=== PATIENT | female | born 2000 | race Two or more races ===

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

== ENCOUNTER 2021-12-19 10:44 | Emergency (ER) | payer SELFPAY ==
[~2021-12-19] VITALS: Ht 154.9 cm; Wt 71.5 kg
[2021-12-19 11:08] VITALS: BP 129/87
[2021-12-19] MEDS ORDERED: KETOROLAC 15 MG/ML VIAL. IVP ONE (12:00)
[2021-12-19] MEDS ORDERED: PROCHLORPERAZINE 10 MG/2 ML VIAL. IV ONE (12:00)
[2021-12-19] MEDS ORDERED: diphenhydrAMINE 50 MG/ML VIAL IVP ONE ×2 (12:00→12:30)
[2021-12-19] MEDS ORDERED: BENZTROPINE MESYLATE 2 MG/2 ML VIAL. IV PRN (12:15)
--- NOTE | 2021-12-19 13:38 | PHYS DOC ---
Past Medical History Past Medical History: Asthma, Migraines Past Surgical History: No Surgical History Smoking Status: Never Smoker Alcohol Use: None Drug Use: None General Adult EDM: Chief Complaint: HEADACHE HPI: HPI: Patient is a 21 year old female with history of migraines who presents with migraine that is persisted for approximately 1 month. Patient rates her generalized head pain 8/10 nonradiating. Patient reports associated photophobia, phonophobia and intolerance to smells, nausea and vomiting. She states that the left side of her body feels "heavy and numb." Patient has suffered from migraines for approximately the past 3-4 months. This is not a new symptom for her when she has migraines, and her primary care doctor believes it is related to her migraine symptomology. Patient saw her primary care doctor about 1 week ago and was prescribed a beta-le, naproxen and Fioricet. These medications are not abortive for her at this time. She does have an appointment in January with a migraine specialist (neurologist?). Patient denies other neurological symptoms, fever, chills, weakness. Review of Systems: Review of Systems: ROS negative or noncontributory except as mentioned in HPI. Heart Score: C/O Chest Pain: No Current Medications: Current Medications Medications (Trade) Dose Ordered Sig/Patrick Start Time Stop Time Status Last Admin Dose Admin Benztropine Mesylate (Cogentin) 2 mg 1X PRN 12/19/21 12:15 12/19/21 12:24 DC 12/19/21 12:24 2 MG Diphenhydramine HCl (Benadryl) 25 mg 1X ONCE 12/19/21 12:30 12/19/21 12:31 DC 12/19/21 12:24 25 MG Ketorolac Tromethamine (Toradol 15mg Vial) 15 mg 1X ONCE 12/19/21 12:00 12/19/21 12:01 DC 12/19/21 11:54 15 MG Prochlorperazine Edisylate (Compazine) 10 mg 1X ONCE 12/19/21 12:00 12/19/21 12:01 DC 12/19/21 11:54 10 MG Allergies: Allergies: Allergies Coded Allergies Type Severity Reaction Last Updated Verified No Known Drug Allergies 11/08/14 No Physical Exam: PE: Constitutional: Well developed, well nourished, patient moves slowly and has her eyes closed for much of the time, patient appears to be in pain, non-toxic appearance. HENT: Normocephalic, atraumatic, bilateral external ears normal, nose normal. Eyes: PERRL, EOMI, conjunctiva normal, no discharge. Neck: Normal range of motion, no tenderness, no stridor. Skin: Warm, dry, no erythema, no rash. Back: No step-off, no tenderness. Extremities: No cyanosis, no clubbing, ROM intact, no edema. Neurologic: Alert and oriented x4, normal motor function, normal sensory function, no focal deficits noted. Current Patient Data: Labs: Laboratory Tests Test 12/19/21 11:44 POC Urine HCG, Qualitative Hcg negative (Negative) Vital Signs: Vital Signs Date Time Temp Pulse Resp B/P (MAP) Pulse Ox O2 Delivery O2 Flow Rate FiO2 12/19/21 11:08 98.4 76 18 129/87 (101) 100 Room Air 98.4 Course & Med Decision Making: Course & Med Decision Making Pertinent Labs and Imaging studies reviewed. (See chart for details) Patient is a 21-year-old female who presents to the emergency department with a migraine that is persisted for about 1 month. Patient will be treated here in the department with Toradol, Benadryl, Compazine. After Compazine administration, nurse made me aware that the patient was having some extremity "twitching." On exam, it appears patient has had a dyskinetic reaction to the Compazine. Discussed with Dr. Baumann in the department, who advises another 25 mg Benadryl as well as 2 mg Cogentin administration. On reevaluation, patient's involuntary body movements have ceased and she reports that both her migraine and her nausea are much better. Patient feels well enough to go home. I advised to her and her partner at bedside that they call the neurologist today or tomorrow to make them aware that she did have an ER visit. At the very least, she might be added to a list to call for cancel appointments. Return precautions were provided. All of the patient and her partner's questions were answered. They understand and are agreeable to christiano fernando. David Disclaimer: David Disclaimer: This electronic medical record was generated, in whole or in part, using a voice recognition dictation system. Departure Departure Impression: Primary Impression: Migraine without aura, not intractable Qualified Codes: G43.009 - Migraine without aura, not intractable, without status migrainosus Disposition: 01 HOME / SELF CARE / HOMELESS Condition: IMPROVED Referrals: EUFEMIA GARCIA (PCP) Patient Instructions: Recurrent Migraine Headache, [id number] Additional Instructions: EMERGENCY DEPARTMENT GENERAL DISCHARGE INSTRUCTIONS Thank you for coming to [facility] Emergency Department (ED) today and trusting us with you care. We trust that you had a positive experience in our Emergency Department. If you wish to speak to the department management, you may call the director at . YOUR FOLLOW UP INSTRUCTIONS ARE FOLLOWS: 1. Follow up with your primary care doctor. If you do not have a primary doctor, please ask for a resource list of physicians or clinics that may be able to assist you with follow up care. 2. The emergency provider has interpreted your imaging studies, if any were ordered. The radiology clinical application specialist also reviewed them. If there is a change in the findings, you will be notified in 48 hours when at all possible. 3. If a lab test or culture has been done, your results will be reviewed and you will be notified if you need a change in treatment. 4. Follow instructions verbalized to you and refer to the printouts if needed. ADDITIONAL INSTRUCTIONS AND INFORMATION: 1. Your care today has been supervised by a physician who is specially trained in emergency care. Many problems require more than one evaluation for a complete diagnosis and treatment. We recommend that you schedule your follow up appointment as recommended to ensure complete treatment of you illness or injury. If you are unable to obtain follow up care and continue to have a problem, or if your condition worsens, we recommend that you return to the ED. 2. We are not able to safely determine your condition over the phone nor are we able to give sound medical advice over the phone. For these safety reasons, if you call for medical advice we will ask you to come to the ED for further evaluation. 3. If you have any questions regarding these discharge instructions please call the ED at . SAFETY INFORMATION: In the interest of safety, wellness, and injury prevention; we encourage you to wear your seat belt, if you smoke; quite smoking, and we encourage family to use a protective helmet for bicycling and other sporting events that present an increased risk for head injury. IF YOUR SYMPTOMS WORSEN OR NEW SYMPTOMS DEVELOP, OR YOU HAVE CONCERNS ABOUT YOUR CONDITION; OR IF YOUR CONDITION WORSENS WHILE YOU ARE WAITING FOR YOUR FOLLOW UP APPOINTMENT; EITHER CONTACT YOUR PRIMARY CARE DOCTOR, THE PHYSICIAN WHOSE NAME AND NUMBER YOU WERE GIVEN, OR RETURN TO THE ED IMMEDIATELY. SALIMA CAST Dec 19, 2021 13:38
== END 2021-12-19 13:42 | disposition home or self-care (01) ==
LOC: ER 10:44
DX: G43.009 Migraine without aura, not intractable, without status migrainosus (principal); J45.909 Unspecified asthma, uncomplicated
CPT/HCPCS: 81025; 96374; 96375; 96376; 99284; J0515; J0780; J1200; J1885